=== PATIENT | female | born 1940 | race Two or more races ===

== ENCOUNTER → 2016-06-26 | Outpatient (CLI) | payer MEDICARE, OTHER ==
--- NOTE | 2016-06-27 08:52 | RAD ---
Bilateral hands, 6 views, 06/26/2016: History: Polyarthralgia There is mild patchy bony demineralization. There are mild degenerative changes at scattered interphalangeal joints bilaterally and at the first CMC joints. Tiny periarticular lucencies in the distal end of the proximal phalanx of the left index finger are compatible with subchondral cysts versus tiny bony erosions. No other definite bone erosions are seen. No fracture or dislocation is evident. There are small linear radiopacities suggesting a broken needle fragment in the soft tissues along the volar aspect of the left third metacarpal. IMPRESSION: 1. Demineralization. 2. Mild scattered degenerative changes. 3. Old radiopaque foreign body compatible with a broken needle fragment in the soft tissues along the volar aspect of the left fifth metacarpal. Bilateral feet, 6 views, 06/26/2016: The bony structures are demineralized. 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 The fourth toe amputation has occurred since the 04/21/2005 exam. There is absence of the distal phalanx of the left great toe with deformity of the distal end of the proximal phalanx which is unchanged. There is also chronic appearing deformity of the distal phalanx of the left little toe. There are mild degenerative changes at the first MTP joint and at the midfoot level. There are degenerative changes at scattered interphalangeal joints as well as at the midfoot level on the right. No bone erosions are seen. No acute fracture or destructive bony lesion is seen on either side. Extensive arterial calcifications are present. IMPRESSION: 1. 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 2. Moderate scattered degenerative changes. 3. No acute bony abnormality is detected.
== END | disposition home or self-care (01) ==
LOC: RAD 11:40
PROVIDERS: ATTEND Internal Medicine Rheumatology
DX: M25.572 Pain in left ankle and joints of left foot (principal); M25.542 Pain in joints of left hand; M25.541 Pain in joints of right hand
CPT/HCPCS: 73130; 73630

== ENCOUNTER → 2017-06-26 | Day surgery (SDC) | payer OTHER, MEDICARE ==
[~2017-06-26] MED LIST: LIDOCAINE 1% PF 2 ML VIAL. ID; MORPHINE SULFATE 4 MG/ML DISP.SYRIN. IV; ONDANSETRON PF 4 MG/2 ML VIAL. IV; PROCHLORPERAZINE 10 MG/2 ML VIAL. IV; PROPOFOL 20 ML IV; fentaNYL PF VIAL 100 MCG/2 ML VIAL IV
[2017-06-26] MEDS: IV RINGERS,LACTATED 1000ML 1,000 ML IV (07:58)
[2017-06-29 08:04] LABS: POC GLUCOSE 100 mg/dL (70-99)
== END | disposition home or self-care (01) ==
LOC: ENDOS 07:14
DX: K21.0 Gastro-esophageal reflux disease with esophagitis (principal); I10 Essential (primary) hypertension; H40.9 Unspecified glaucoma; Z79.899 Other long term (current) drug therapy; Z89.439 Acquired absence of unspecified foot
CPT/HCPCS: 43239; 82962; 88305; J2704